=== PATIENT | female | born 1985 | race Caucasian/White ===

== ENCOUNTER 2021-03-04 20:53 | Emergency (ER) | payer BC, OTHER, MEDICAID ==
[~2021-03-04] VITALS: Ht 154.9 cm; Wt 68.0 kg
[~2021-03-04 20:53] MED LIST: ACETAMINOPHEN325 M1; AMOXICILLIN875 MG PO; APAP500; BACTRIM DS TAB1 EACH PO; DERMOPLAST SPRA56 ML; DIFLUCAN200 MG PO; IBUPROFEN 400400 M1; IRON325; LANOLIN56 GM; MOBIC7.5 MG PO; NOHOMEMEDICATIONS; PRENATAL; PRENATAL COMPL1 EACH; PROAIR HFA8.5 GM IH; TUCKS MEDICATE1 EAC1
[2021-03-04 21:33] LABS: URINE BILIRUBIN NEGATIVE (Negative); URINE BLOOD 3+ (Negative); URINE COLOR YELLOW; URINE GLUCOSE-RANDOM NEGATIVE (Negative); URINE KETONES NEGATIVE (Negative); URINE LEUKOCYTES 2+ (Negative); URINE NITRITE NEGATIVE (Negative); URINE PROTEIN NEGATIVE (Negative); URINE SPECIFIC GRAVITY 1.025 (1.005-1.030); URINE UROBILINOGEN 0.2 E.U./dl (0.2-1.0)
[2021-03-04 21:34] LABS: URINE CLARITY CLOUDY
[2021-03-04 21:35] LABS: BACTERIA >30 Many /HPF (None Seen); CASTS None Seen /LPF (None Seen); MUCUS 0-3 Light strn/LPF (None Seen); SQUAMOUS 0-3 Few /LPF (0-3); URINE WBC >25 Many /HPF (0-5); WBC CLUMPS Few (None Seen)
[2021-03-04 21:36] LABS: CRYSTALS None Seen /LPF (None Seen)
[2021-03-04 21:58] LABS: ABSOLUTE BASOPHILS 0.1 thou/uL (0.0-0.2); ABSOLUTE EOSINOPHILS 0.3 thou/uL (0.0-0.7); ABSOLUTE LYMPHOCYTES 3.4 thou/uL (0.8-5.3); ABSOLUTE MONOCYTES 0.5 thou/uL (0.0-1.2); ABSOLUTE NEUTROPHILS 4.8 thou/uL (1.6-8.1); BASOPHILS 0.7 %; EOSINOPHILS 2.9 %; HEMATOCRIT 35.7 % (37.0-47.0); LYMPHOCYTES 37.9 %; MCH 29.3 pg (26.0-34.0); MCHC 33.6 g/dL (28.0-37.0); MCV 87.3 fL (80.0-100.0); MONOCYTES 5.1 %; NUCLEATED RBCS 0 /100WBC; PLATELET COUNT* 274 thou/uL (150-400); POLYS 53.4 %; RBC 4.08 mil/uL (4.20-5.00); WBC 9.1 thou/uL (4.0-11.0)
[2021-03-04 22:08] LABS: CALCIUM 8.3 mg/dL (8.5-10.1); CREATININE 1.1 mg/dL (0.6-1.3)
[2021-03-04 22:12] LABS: ALBUMIN 3.2 g/dL (3.4-5.0); TOTAL BILIRUBIN 0.2 mg/dL (<0.1-1.0); TOTAL PROTEIN 6.6 g/dL (6.4-8.2)
[2021-03-04] MEDS ORDERED: PYRIDIUM200 MG PO (22:17)
[2021-03-04] MEDS ORDERED: CEPHALEXIN500 MG PO (22:17)
[2021-03-04 22:47] VITALS: BP 105/51
== END 2021-03-04 22:49 | disposition home or self-care (01) ==
LOC: M.ERS 20:53
PROVIDERS: Physician Assistant; Student in an Organized Health Care Education/Training Program
DX: N39.0 Urinary tract infection, site not specified (principal); J45.909 Unspecified asthma, uncomplicated